=== PATIENT | male | born 1955 ===

== ENCOUNTER 2018-03-14 11:45 | Day surgery (SDC) | payer OTHER ==
[~2018-03-14 11:45] MED LIST: AMIT10 PO; AMOCLA875 PO; AMOX500 PO; ASPI81CH PO; ATEN25 PO; ATEN50; ATEN50 PO; BUSP10 PO; CLON1 PO; Coumadin10 MG PO; FISH1000 PO; FLUO20 PO; HYDACE5 PO; LEVFLO500 PO; LISHYD1012 PO; MAGCIT300 PO; OMEP20ER; OMEP20ER PO; PRAV20 PO; PRAV40 PO; TRAZ100 PO; ZOLP5 PO
== END 2018-03-14 23:28 | disposition home or self-care (01) ==
LOC: WOUND 11:45
DX: E11.622 Type 2 diabetes mellitus with other skin ulcer (principal); L97.821 Non-pressure chronic ulcer of other part of left lower leg limited to breakdown of skin; I87.2 Venous insufficiency (chronic) (peripheral); E11.65 Type 2 diabetes mellitus with hyperglycemia; R60.9 Edema, unspecified; I83.892 Varicose veins of left lower extremity with other complications; I10 Essential (primary) hypertension; F41.8 Other specified anxiety disorders
CPT/HCPCS: G0463

== ENCOUNTER 2018-03-21 12:04 | Day surgery (SDC) | payer OTHER | END 2018-03-21 22:50 | disposition home or self-care (01) | LOC: WOUND 12:04 | DX: Z48.00 Encounter for change or removal of nonsurgical wound dressing (principal); E11.622 Type 2 diabetes mellitus with other skin ulcer; L97.822 Non-pressure chronic ulcer of other part of left lower leg with fat layer exposed; I87.2 Venous insufficiency (chronic) (peripheral); E11.65 Type 2 diabetes mellitus with hyperglycemia; R60.9 Edema, unspecified; I83.892 Varicose veins of left lower extremity with other complications | CPT/HCPCS: G0463 ==

== ENCOUNTER 2018-03-28 12:22 | Day surgery (SDC) | payer OTHER | END 2018-03-28 23:14 | disposition home or self-care (01) | LOC: WOUND 12:22 | DX: E11.622 Type 2 diabetes mellitus with other skin ulcer (principal); L97.822 Non-pressure chronic ulcer of other part of left lower leg with fat layer exposed; I87.2 Venous insufficiency (chronic) (peripheral); E11.65 Type 2 diabetes mellitus with hyperglycemia; R60.9 Edema, unspecified; I83.892 Varicose veins of left lower extremity with other complications; I10 Essential (primary) hypertension; F41.8 Other specified anxiety disorders | CPT/HCPCS: G0463 ==

== ENCOUNTER 2018-04-04 12:15 | Day surgery (SDC) | payer OTHER | END 2018-04-04 22:48 | disposition home or self-care (01) | LOC: WOUND 12:15 | DX: Z48.00 Encounter for change or removal of nonsurgical wound dressing (principal); E11.622 Type 2 diabetes mellitus with other skin ulcer; L97.822 Non-pressure chronic ulcer of other part of left lower leg with fat layer exposed; I87.2 Venous insufficiency (chronic) (peripheral); E11.65 Type 2 diabetes mellitus with hyperglycemia | CPT/HCPCS: G0463 ==

== ENCOUNTER 2018-04-18 00:29 | Day surgery (SDC) | payer OTHER | END 2018-04-18 23:03 | disposition home or self-care (01) | LOC: WOUND 00:29 | DX: E11.622 Type 2 diabetes mellitus with other skin ulcer (principal); L97.822 Non-pressure chronic ulcer of other part of left lower leg with fat layer exposed; I87.2 Venous insufficiency (chronic) (peripheral); E11.65 Type 2 diabetes mellitus with hyperglycemia; R60.9 Edema, unspecified; I83.892 Varicose veins of left lower extremity with other complications; Z79.82 Long term (current) use of aspirin | CPT/HCPCS: 87070; 87077; 87147; 87186; 87205 ==

== ENCOUNTER 2018-04-29 19:07 | Emergency (ER) | payer OTHER ==
[~2018-04-29] VITALS: Ht 165.1 cm; Wt 76.2 kg
== END 2018-04-29 20:27 | disposition home or self-care (01) ==
LOC: ER 19:07
DX: L97.929 Non-pressure chronic ulcer of unspecified part of left lower leg with unspecified severity (principal); Z48.00 Encounter for change or removal of nonsurgical wound dressing
CPT/HCPCS: 99282

== ENCOUNTER 2018-05-09 00:44 | Day surgery (SDC) | payer OTHER | END 2018-05-09 22:53 | disposition home or self-care (01) | LOC: WOUND 00:44 | DX: E11.622 Type 2 diabetes mellitus with other skin ulcer (principal); L97.822 Non-pressure chronic ulcer of other part of left lower leg with fat layer exposed; I87.2 Venous insufficiency (chronic) (peripheral); E11.65 Type 2 diabetes mellitus with hyperglycemia; R60.9 Edema, unspecified; I83.892 Varicose veins of left lower extremity with other complications; I10 Essential (primary) hypertension; E78.5 Hyperlipidemia, unspecified; F41.8 Other specified anxiety disorders | CPT/HCPCS: G0463 ==

== ENCOUNTER 2018-05-16 12:25 | Day surgery (SDC) | payer OTHER | END 2018-05-16 22:45 | disposition home or self-care (01) | LOC: WOUND 12:25 | DX: E11.622 Type 2 diabetes mellitus with other skin ulcer (principal); I83.028 Varicose veins of left lower extremity with ulcer other part of lower leg; L97.822 Non-pressure chronic ulcer of other part of left lower leg with fat layer exposed; I10 Essential (primary) hypertension; E78.5 Hyperlipidemia, unspecified; F32.9 Major depressive disorder, single episode, unspecified; F41.9 Anxiety disorder, unspecified | CPT/HCPCS: 87070; 87205; G0463 ==

== ENCOUNTER 2018-05-20 00:17 | Day surgery (SDC) | payer OTHER | END 2018-05-20 12:00 | disposition home or self-care (01) | LOC: WOUND 00:17 | DX: E11.622 Type 2 diabetes mellitus with other skin ulcer (principal); L97.822 Non-pressure chronic ulcer of other part of left lower leg with fat layer exposed; I87.2 Venous insufficiency (chronic) (peripheral); E11.65 Type 2 diabetes mellitus with hyperglycemia; I83.892 Varicose veins of left lower extremity with other complications; I10 Essential (primary) hypertension; F41.9 Anxiety disorder, unspecified | CPT/HCPCS: G0463 ==

== ENCOUNTER 2018-05-27 00:23 | Day surgery (SDC) | payer OTHER | END 2018-05-27 23:22 | disposition home or self-care (01) | LOC: WOUND 00:23 | DX: L97.822 Non-pressure chronic ulcer of other part of left lower leg with fat layer exposed (principal); I83.028 Varicose veins of left lower extremity with ulcer other part of lower leg; I87.2 Venous insufficiency (chronic) (peripheral); I10 Essential (primary) hypertension; E11.65 Type 2 diabetes mellitus with hyperglycemia; E78.5 Hyperlipidemia, unspecified; F32.9 Major depressive disorder, single episode, unspecified; F41.9 Anxiety disorder, unspecified | CPT/HCPCS: G0463 ==

== ENCOUNTER 2018-05-30 00:13 | Day surgery (SDC) | payer OTHER | END 2018-05-30 23:20 | disposition home or self-care (01) | LOC: WOUND 00:13 | DX: L97.822 Non-pressure chronic ulcer of other part of left lower leg with fat layer exposed (principal); I83.92 Asymptomatic varicose veins of left lower extremity; E11.9 Type 2 diabetes mellitus without complications; I10 Essential (primary) hypertension; E78.5 Hyperlipidemia, unspecified; F32.9 Major depressive disorder, single episode, unspecified; F41.9 Anxiety disorder, unspecified; Z79.899 Other long term (current) drug therapy; Z79.84 Long term (current) use of oral hypoglycemic drugs ==

== ENCOUNTER 2018-05-31 04:10 | Emergency (ER) | payer OTHER ==
[~2018-05-31] VITALS: Ht 165.1 cm; Wt 78.0 kg
== END 2018-05-31 05:03 | disposition home or self-care (01) ==
LOC: ER 04:10
DX: Z48.00 Encounter for change or removal of nonsurgical wound dressing (principal); Z79.899 Other long term (current) drug therapy; Z79.82 Long term (current) use of aspirin; F32.9 Major depressive disorder, single episode, unspecified; I10 Essential (primary) hypertension
CPT/HCPCS: 99283

== ENCOUNTER 2018-06-08 01:45 | Emergency (ER) | payer OTHER ==
[~2018-06-08] VITALS: Ht 165.1 cm; Wt 78.0 kg
[2018-06-08] MEDS ORDERED: METF500C PO (02:04)
[2018-06-08] MEDS ORDERED: METO50ER PO (02:04)
== END 2018-06-08 02:47 | disposition home or self-care (01) ==
LOC: ER 01:45
DX: M79.662 Pain in left lower leg (principal); Z79.84 Long term (current) use of oral hypoglycemic drugs; Z79.899 Other long term (current) drug therapy; Z79.82 Long term (current) use of aspirin; F32.9 Major depressive disorder, single episode, unspecified; I10 Essential (primary) hypertension
CPT/HCPCS: 99282

== ENCOUNTER 2018-06-28 09:23 | Day surgery (SDC) | payer MEDICARE, OTHER ==
[~2018-06-28] VITALS: Ht 165.1 cm; Wt 77.0 kg
[~2018-06-28 09:23] MED LIST changes: +METF500C PO; +METO50ER PO; +POTCHL10ER PO
--- NOTE | 2018-06-28 10:52 | NUR ---
RF CYCLES COMPLETED AT 120 DEGREES AT 11 LÓPEZ. TOTAL TX TIME 2:40, 8 RF CYCLES. PT TOLERATING WELL.
--- NOTE | 2018-06-28 11:03 | NUR ---
PT TOLERATED VENOUS ABLATIONA AND SCLEROTHERAPY WELL.
--- NOTE | 2018-06-28 12:02 | NUR ---
LEFT LEG WRAPPED WITH BHANU, COBAN TO THIGHT-HIGH. KNEE-HIGH COMPRESSION STOCKING PLACED ON LEFT LEG. NO BLEEDING AND NO HEMATOMA LEFT LOWER LEG. DISCHARGE INSTRUCTIONS REVIEWED AND ALL QUESTIONS ANSWERED. 20 G IV DISCONTINUED FROM RIGHT AC WITH INTACT CANNULA. PT PROVIED LUNCH AND DRINK TO TAKE WITH HIM AND HAD WHEELCHAIR ESCORT OUT.
== END 2018-06-28 22:51 | disposition home or self-care (01) ==
LOC: MHTC 09:23
DX: I87.2 Venous insufficiency (chronic) (peripheral) (principal); E11.622 Type 2 diabetes mellitus with other skin ulcer; L97.829 Non-pressure chronic ulcer of other part of left lower leg with unspecified severity; I10 Essential (primary) hypertension; K21.9 Gastro-esophageal reflux disease without esophagitis; Z88.1 Allergy status to other antibiotic agents; Z88.8 Allergy status to other drugs, medicaments and biological substances; Z79.899 Other long term (current) drug therapy; Z79.84 Long term (current) use of oral hypoglycemic drugs
CPT/HCPCS: 36466; 36475; 99152; C1769; C1888; C1894; J1644; J2250; J3010; J7030; J7040

== ENCOUNTER 2018-07-10 01:35 | Emergency (ER) | payer MEDICARE, OTHER ==
[~2018-07-10] VITALS: Ht 165.1 cm; Wt 76.2 kg
== END 2018-07-10 04:50 | disposition home or self-care (01) ==
LOC: ER 01:35
DX: I99.8 Other disorder of circulatory system (principal); L97.929 Non-pressure chronic ulcer of unspecified part of left lower leg with unspecified severity; F32.9 Major depressive disorder, single episode, unspecified; I10 Essential (primary) hypertension; Z88.2 Allergy status to sulfonamides; Z88.1 Allergy status to other antibiotic agents; Z79.899 Other long term (current) drug therapy; Z79.82 Long term (current) use of aspirin
CPT/HCPCS: 99282

== ENCOUNTER 2018-07-22 15:56 | Inpatient (IN) | payer MEDICARE, OTHER ==
[~2018-07-22] VITALS: Ht 165.1 cm; Wt 76.9 kg
[2018-07-22 16:18] LABS: Source, Urine Clean Catch
[2018-07-22 16:33] LABS: BASOPHILS ABSOLUTE AUTO 0.02 K/mm3 (0.00-0.23); BASOPHILS PERCENT AUTO 0 % (0-2); EOSINOPHILS PERCENT AUTO 0 % (0-6); Hematocrit 35.9 % (37.0-53.0); Hemoglobin 12.3 g/dL (13.5-17.5); IMMATURE GRAN ABSOLUTE AUTO 0.16 K/mm3 (0.00-0.10); IMMATURE GRAN PERCENT AUTO 1 % (0-1); LYMPHOCYTES ABSOLUTE AUTO 0.74 K/mm3 (0.84-5.20); LYMPHOCYTES PERCENT AUTO 6 % (21-46); MONOCYTES ABSOLUTE AUTO 0.66 K/mm3 (0.16-1.47); MONOCYTES PERCENT AUTO 5 % (4-13); Mean Corpuscular HGB 29.7 pg (26.0-34.0); Mean Corpuscular HGB Conc 34.3 g/dL (31.5-36.5); Mean Corpuscular Volume 87 fL (80-100); Mean Platelet Volume 10.1 fL (9.1-12.4); NEUTROPHILS ABSOLUTE AUTO 11.38 K/mm3 (1.96-9.15); NEUTROPHILS PERCENT AUTO 88 % (41-73); Platelet Count 181 K/mm3 (150-400); RDW Coefficient Variation 14.6 % (11.7-14.2); Red Blood Cell Count 4.14 M/mm3 (4.30-5.90); White Blood Cell Count 12.96 K/mm3 (4.00-11.30)
[2018-07-22 16:36] LABS: Bilirubin, Urine Neg (Neg); Blood, Urine 5+ (Neg); Glucose Qualitative, Urine 4+ (Neg); Ketones, Urine 1+ (Neg); Leukocyte Esterase, Urine 2+ (Neg); Nitrite, Urine Neg (Neg); Protein, Urine 3+ (Neg); Urobilinogen, Urine NORM (Normal)
[2018-07-22 16:42] LABS: Alanine Aminotransfer (ALT/SGP 36 U/L (12-78); Albumin, Blood 2.5 g/dL (3.4-5.0); Albumin/Globulin Ratio 0.5 (0.8-1.8); Alk Phos 110 U/L (50-136); Anion Gap 14 mmol/L (6-16); Aspartate Aminotrans (AST/SGOT 62 U/L (12-37); Beta-hydroxybutyrate 7.7 mg/dL (0.2-2.8); Blood Urea Nitrogen 15 mg/dL (8-24); Bun/Creatinine Ratio 18.2 (12.0-20.0); CO2, Blood 19 mmol/L (21-32); Chloride, Blood 94 mmol/L (98-108); Creatinine, Blood 0.82 mg/dL (0.60-1.20); Globulin, Blood 5.5 g/dL (2.2-4.0); Glomerular Filtration Rate >60 (60-); Glucose, Blood 589 mg/dL (70-99); Potassium, Blood 4.4 mmol/L (3.5-5.5); Sodium, Blood 127 mmol/L (136-145)
[2018-07-22 16:59] LABS: Appearance, Urine Cloudy (Clear); Color, Urine Yellow (P-Yellow)
[2018-07-22 17:11] LABS: Squamous Epithelial Cells Mod /hpf (Few); White Blood Cells, Urine TNTC /hpf (0-5)
[2018-07-22 17:13] LABS: Bacteria Mod /hpf
[2018-07-22] MEDS ORDERED: ACET500 PO (18:49)
[2018-07-22] MEDS ORDERED: Oyster Shell C500 MG PO (18:50)
[2018-07-22 20:30] LABS: U Amphetamine Screen Not Detected; U Barbituate Screen Not Detected; U Benzodiazapine Screen Not Detected; U Buprenorphine Screen Not Detected; U Cannabinoids Screen Not Detected; U Cocaine Screen Not Detected; U Methadone Screen Not Detected; U Methamphetamine Screen Not Detected; U Opiates Screen Not Detected; U Oxycodone Screen Not Detected; U Phencyclidine Screen Not Detected; U Propoxyphene Screen Not Detected
--- NOTE | 2018-07-22 20:30 | NUR ---
RECEIVED HAND OFF FROM ER NURSING USING SBAR. TRANSPORTED TO PCU 11 VIA STRETCHER. TRANSFERED SELF TO BED WITH MAX ASSIST FROM STAFF, TOLERATED WELL. AAO X3, PINA, FOLLOWS ALL COMMANDS. HAS FLAT AFFECT AT TIMES AND TAKES WHAT IS SAID LITERAL. LEFT FA 18G PIV IS PATENT, FLUSHING WITH EASE WHILE FINISHING FIRST DOSE OF VANC STARTED IN ER. LLE WOUND CLEANSED WITH DERMAL WOULD CLEANSER, ABD PAD APPLIED, WRAPPED IN CURLEX, AND NET STOCKING APPLIED OVER THAT, TOLERATED WELL. PROVIDED WITH ORAL HYDRATION PER REQUEST. ADMISSION ASSESSMENT IN PROGRESS. SAFETY MEASURES IN PLACE. WILL CONTINUE TO MONITOR.
[2018-07-22 21:48] LABS: Anion Gap 8 mmol/L (6-16); Blood Urea Nitrogen 14 mg/dL (8-24); Bun/Creatinine Ratio 15.3 (12.0-20.0); CO2, Blood 24 mmol/L (21-32); Calcium, Blood 7.3 mg/dL (8.5-10.1); Chloride, Blood 100 mmol/L (98-108); Creatinine, Blood 0.91 mg/dL (0.60-1.20); Glomerular Filtration Rate >60 (60-); Glucose, Blood 340 mg/dL (70-99); Potassium, Blood 3.5 mmol/L (3.5-5.5); Sodium, Blood 132 mmol/L (136-145)
[2018-07-23 04:06] LABS: Hematocrit 29.6 % (37.0-53.0); Hemoglobin 9.8 g/dL (13.5-17.5); Mean Corpuscular HGB 29.2 pg (26.0-34.0); Mean Corpuscular HGB Conc 33.1 g/dL (31.5-36.5); Mean Corpuscular Volume 88 fL (80-100); Mean Platelet Volume 9.8 fL (9.1-12.4); Platelet Count 143 K/mm3 (150-400); RDW Coefficient Variation 14.6 % (11.7-14.2); RDW Standard Deviation 47.8 fL (35.1-46.3); Red Blood Cell Count 3.36 M/mm3 (4.30-5.90); White Blood Cell Count 10.89 K/mm3 (4.00-11.30)
[2018-07-23 04:26] LABS: Anion Gap 8 mmol/L (6-16); Blood Urea Nitrogen 16 mg/dL (8-24); Bun/Creatinine Ratio 21.6 (12.0-20.0); CO2, Blood 23 mmol/L (21-32); Calcium, Blood 7.4 mg/dL (8.5-10.1); Chloride, Blood 102 mmol/L (98-108); Creatinine, Blood 0.74 mg/dL (0.60-1.20); Glomerular Filtration Rate >60 (60-); Glucose, Blood 255 mg/dL (70-99); Potassium, Blood 3.4 mmol/L (3.5-5.5); Sodium, Blood 133 mmol/L (136-145)
[2018-07-23 04:29] LABS: BAND PERCENT MAN 15 % (0-8); BASOPHILS PERCENT MAN 0 % (0-2); EOSINOPHILS PERCENT MAN 0 % (0-6); LYMPHOCYTES ABSOLUTE MAN 0.98 K/mm3 (0.84-5.20); LYMPHOCYTES PERCENT MAN 9 % (21-46); MONOCYTES ABSOLUTE MAN 0.54 K/mm3 (0.16-1.47); MONOCYTES PERCENT MAN 5 % (4-13); NEUTROPHILS ABSOLUTE MAN 9.36 K/mm3 (1.96-9.15); SEG NEUTROPHILS PERCENT MAN 71 % (41-73); TOTAL CELLS COUNTED 100
--- NOTE | 2018-07-23 06:44 | NUR ---
LYING IN SEMI FOWLERS WITH EYES OPEN WHILE WATCHING TV WITH THE SOUNDS DOWN. 18G SL PIV PLACED TO LEFT FA. 0600 DOSE OF VANC STARTED. DENIES PAIN, DISCOMFORT, OR FURTHER NEEDS AT THIS TIME. NO FURTHER CHANGES SINCE ADMISSION. SAFETY MESURES IN PLACE. WILL GIVE HAND OFF TO ONCOMING SHIFT UING SBAR.
--- NOTE | 2018-07-23 16:36 | NUR ---
SUMMARY PT IS A/O X2-3, AFFECT SOMEWHAT FLAT HOWEVER INITIATES CONVERSATION, COOPERATIVE AFFECT. SBA TO BSC, GAIT UNSTEADY. LLE CELLULITIS/REDNESS MAPPED. DRSG PLACED LAMBERTO JAVIER RN HAS BEEN CDI. IV ANTIBX ORDERED. PT STATE MINIMAL DISCOMFORT LLE, STATE BOTH LEGS SOMEWHAT CRAMPING, RESTLESS, "JUMPY", PRN TYLENOL PROVIDES RELIEF. VSS, AFEBRILE.
[2018-07-23 17:29] LABS: Vancomycin, Trough 9.3 ug/mL (5.0-10.0)
--- NOTE | 2018-07-24 04:14 | NUR ---
SHIFT SUMMARY PT ALERT T/O SHIFT. VSS; NO ACUTE CHANGES. RA; TELEMETRY IN PLACE; SR WITH PAC'S PER FUNERAL HOME ASSISTANT. DRESSING TO LLE CHANGED. AREA OF REDNESS TO LLE UNCHANGED FROM OUTLINE OUTLINE. PINK/RED AREA INTO GROIN. BRISK CAP REFILL; PWD EXT; PPPX4. PAIN MANAGED PER EMAR. BLOOD GLUCOSE MANAGED PER ORDERS AND PROTOCOL. GOOD PO INTAKE; SOFT BM X1CALL LIGHT IN REACH; PT REMINDED OF NEED TO CALL FOR ASSIST OOB. BED ALARM AND SIDE RAILS X3 FOR SAFETY. WCTM UNTIL REPORT TO DAY SHIFT RN.
[2018-07-24 09:45] LABS: Vancomycin, Trough 8.2 ug/mL (5.0-10.0)
--- NOTE | 2018-07-24 13:42 | NUR ---
Initial Visit: Palliative Care Consult for AD/POLST Pt's bedside nurse Carleen requests for palliative care to make therapeutic visit due to Pt's intention to leave AMA. Pt is sitting in chair and is in the process of getting dressed. Pt appears agitated as evidenced by tone of voice and short answers. Atempted to engage in therapeutic discussion regarding causes of frustrations. Pt reports he warned staff he needed to be discharged by today due to a camping trip being scheduled and did not want to lose his $[address] Dougherty arrives to room and recommends for Pt to stay. Pt is adamant about leaving. Continued to attempt theapeutic discussion and Pt requests for visit to be ended so he can get dressed. This RN respected Pt's wishes and ended visit. Palliative Care will remain available
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
== END 2018-07-24 13:52 | disposition left against medical advice (07) | DRG 871 ==
LOC: ER 15:56 → PCU 19:33
PROVIDERS: Emergency Medicine; Nurse Practitioner Acute Care; ADMIT Internal Medicine
DX: A41.9 Sepsis, unspecified organism (principal); R65.21 Severe sepsis with septic shock; G92 Toxic encephalopathy; L03.116 Cellulitis of left lower limb; E87.1 Hypo-osmolality and hyponatremia; I10 Essential (primary) hypertension; E78.5 Hyperlipidemia, unspecified; E11.65 Type 2 diabetes mellitus with hyperglycemia; Z98.52 Vasectomy status; Z96.641 Presence of right artificial hip joint; Z79.82 Long term (current) use of aspirin; E86.0 Dehydration; D64.9 Anemia, unspecified; E83.51 Hypocalcemia; E87.6 Hypokalemia; Z79.84 Long term (current) use of oral hypoglycemic drugs
CPT/HCPCS: 36415; 70450; 71046; 73590; 73720; 80048; 80053; 80202; 81001; 82010; 82330; 82947; 83605; 83735; 85025; 85651; 86140; 87040; 87070; 87075; 87077; 87086; 87147; 87186; 87205; 93005; 93010; 93971; 96365; 96367; 99285-25; A9577; J0610; J0696; J1650; J1815; J2543; J3370; J7030

== ENCOUNTER → 2018-08-05 | Outpatient (CLI) | payer MEDICARE, OTHER ==
[~2018-08-05] MED LIST changes: +ACET500 PO; +Oyster Shell C500 MG PO
== END | disposition home or self-care (01) ==
LOC: LAB SHORT 12:08 → LAB EV 12:08
DX: L03.119 Cellulitis of unspecified part of limb (principal)
CPT/HCPCS: 87070; 87075; 87077; 87186; 87205

== ENCOUNTER → 2018-09-26 | Outpatient (CLI) | payer MEDICARE, OTHER | END | disposition home or self-care (01) | LOC: LAB SHORT 13:22 → LAB 13:22 | DX: E11.622 Type 2 diabetes mellitus with other skin ulcer (principal); L97.929 Non-pressure chronic ulcer of unspecified part of left lower leg with unspecified severity | CPT/HCPCS: 87070; 87075; 87077; 87186; 87205 ==

== ENCOUNTER 2019-05-03 19:06 | Inpatient (IN) | payer MEDICARE, OTHER ==
[~2019-05-03] VITALS: Ht 167.6 cm; Wt 81.3 kg
[~2019-05-03 19:06] MED LIST changes: -ASPI81CH PO; +Aspirin EC81 MG PO
[2019-05-04 03:13] LABS: BASOPHILS ABSOLUTE AUTO 0.07 K/mm3 (0.00-0.23); BASOPHILS PERCENT AUTO 1 % (0-2); EOSINOPHILS ABSOLUTE AUTO 0.16 K/mm3 (0.00-0.68); EOSINOPHILS PERCENT AUTO 2 % (0-6); Hematocrit 43.6 % (37.0-53.0); Hemoglobin 14.7 g/dL (13.5-17.5); IMMATURE GRAN ABSOLUTE AUTO 0.05 K/mm3 (0.00-0.10); IMMATURE GRAN PERCENT AUTO 1 % (0-1); LYMPHOCYTES PERCENT AUTO 27 % (21-46); MONOCYTES ABSOLUTE AUTO 0.76 K/mm3 (0.16-1.47); MONOCYTES PERCENT AUTO 10 % (4-13); Mean Corpuscular HGB 29.5 pg (26.0-34.0); Mean Corpuscular HGB Conc 33.7 g/dL (31.5-36.5); Mean Corpuscular Volume 87 fL (80-100); Mean Platelet Volume 9.7 fL (9.1-12.4); NEUTROPHILS PERCENT AUTO 60 % (41-73); Platelet Count 178 K/mm3 (150-400); RDW Coefficient Variation 13.5 % (11.7-14.2); RDW Standard Deviation 43.1 fL (35.1-46.3); Red Blood Cell Count 4.99 M/mm3 (4.30-5.90); White Blood Cell Count 8.04 K/mm3 (4.00-11.30)
[2019-05-04 03:32] LABS: Alanine Aminotransfer (ALT/SGP 29 U/L (12-78); Albumin, Blood 3.1 g/dL (3.4-5.0); Albumin/Globulin Ratio 0.6 (0.8-1.8); Alk Phos 130 U/L (50-136); Anion Gap 9 mmol/L (6-16); Aspartate Aminotrans (AST/SGOT 15 U/L (12-37); Bilirubin, Total 0.3 mg/dL (0.1-1.0); Blood Urea Nitrogen 21 mg/dL (8-24); Bun/Creatinine Ratio 25.2 (12.0-20.0); CO2, Blood 27 mmol/L (21-32); Calcium, Blood 8.9 mg/dL (8.5-10.1); Chloride, Blood 102 mmol/L (98-108); Creatinine, Blood 0.83 mg/dL (0.60-1.20); Globulin, Blood 4.9 g/dL (2.2-4.0); Glomerular Filtration Rate >60 (60-); Glucose, Blood 232 mg/dL (70-99); Potassium, Blood 3.6 mmol/L (3.5-5.5); Sodium, Blood 138 mmol/L (136-145)
[2019-05-04] MEDS ORDERED: HYDROCHLOROTH12.5 MG PO (12:18)
[2019-05-04] MEDS ORDERED: ATOR40TA PO (12:18)
[2019-05-04] MEDS ORDERED: Prinivil10 MG PO (12:18)
[2019-05-04] MEDS ORDERED: Lisinopril-Hct1 EAC4 PO (12:42)
--- NOTE | 2019-05-04 13:17 | NUR ---
ER ADMIT- PT ARRIVED TO ROOM 357 VIA GURNEY FROM ED, INDEP TRANSFER INTO BED. PT REPORTS MILD PAIN TO RLE WITH AMBULATION. REDNESS TO BLE, BLISTER POPPED X2 TO RIGHT CALF, PHOTO TAKEN AND ELEVATED ON PILLOWS. LS CEAR, ON RA. HRR. PT DENIES ANY COMPLAINTS OR NEEDS AT THIS TIME. PT ORIENTED TO ROOM AND CALL SYSTEM. CALL LIGHT IN REACH.
--- NOTE | 2019-05-04 16:45 | NUR ---
SHIFT SUMMARY- ER ADMIT TODAY. PT A/OX4, SBA UP IN ROOM. PT REPORTS PAIN TO RIGHT LEG ONLY WITH AMBULATION. REDNESS TO BLE WITH RIGHT CALF HAVING 2 POPPED BLISTERS, PHOTOS TAKEN AND LEG ELEVATED ON PILLOWS. LS CLEAR, ON RA. HRR. PT HOMELESS. PT CAN BE IRRITABLE AT TIMES. 20G TO LEFT HAND WITH NS RUNNING AT 75ML/HR X1.5L. NO OTHER ACUTE CHANGES SINCE ARRIVAL TO FLOOR.
--- NOTE | 2019-05-05 04:41 | NUR ---
SHIFT SUMMARY PT HAS RESTED MOST OF THE NIGHT. CELLULTIS TO BLE REMAINS UNCHANGED, OUTLINED WITH NELSONIE. BLISTERS TO RIGHT MARCH ARE WHEEPING. PT DENIES PAIN IN HIS LEGS, HE STATES ONLY WHEN TOUCHED. IV ABX CONTINUED ORDERED. PT AFEBRILE WITH ORAL TEMP CHECK. PT HAS RECEIVED A FULL LITER OF NS AND IS NOW ON HIS HALF LITER. PT A/OX4, FLAT WITHDRAWN EFFECT. DENIES NEEDS WHEN ASKED. NO ACUTE CHANGES IN PT ASSESSMENT. BED IN LOWEST POSITION, CALL LIGHT WITHIN REACH. WILL CONTINUE TO MONITOR AND REPORT TO ONCOMING RN.
[2019-05-05 04:44] LABS: BASOPHILS ABSOLUTE AUTO 0.05 K/mm3 (0.00-0.23); BASOPHILS PERCENT AUTO 1 % (0-2); EOSINOPHILS ABSOLUTE AUTO 0.17 K/mm3 (0.00-0.68); EOSINOPHILS PERCENT AUTO 2 % (0-6); Hematocrit 41.5 % (37.0-53.0); Hemoglobin 13.8 g/dL (13.5-17.5); IMMATURE GRAN ABSOLUTE AUTO 0.06 K/mm3 (0.00-0.10); IMMATURE GRAN PERCENT AUTO 1 % (0-1); LYMPHOCYTES ABSOLUTE AUTO 1.81 K/mm3 (0.84-5.20); LYMPHOCYTES PERCENT AUTO 25 % (21-46); MONOCYTES PERCENT AUTO 10 % (4-13); Mean Corpuscular HGB 29.2 pg (26.0-34.0); Mean Corpuscular HGB Conc 33.3 g/dL (31.5-36.5); Mean Corpuscular Volume 88 fL (80-100); Mean Platelet Volume 9.5 fL (9.1-12.4); NEUTROPHILS ABSOLUTE AUTO 4.47 K/mm3 (1.96-9.15); NEUTROPHILS PERCENT AUTO 62 % (41-73); Platelet Count 155 K/mm3 (150-400); RDW Coefficient Variation 13.5 % (11.7-14.2); RDW Standard Deviation 43.8 fL (35.1-46.3); Red Blood Cell Count 4.73 M/mm3 (4.30-5.90); White Blood Cell Count 7.26 K/mm3 (4.00-11.30)
[2019-05-05 05:12] LABS: Alanine Aminotransfer (ALT/SGP 26 U/L (12-78); Albumin, Blood 2.7 g/dL (3.4-5.0); Albumin/Globulin Ratio 0.6 (0.8-1.8); Alk Phos 111 U/L (50-136); Anion Gap 6 mmol/L (6-16); Aspartate Aminotrans (AST/SGOT 17 U/L (12-37); Bilirubin, Total 0.5 mg/dL (0.1-1.0); Blood Urea Nitrogen 17 mg/dL (8-24); Bun/Creatinine Ratio 20.7 (12.0-20.0); CO2, Blood 28 mmol/L (21-32); Calcium, Blood 8.5 mg/dL (8.5-10.1); Chloride, Blood 104 mmol/L (98-108); Creatinine, Blood 0.82 mg/dL (0.60-1.20); Globulin, Blood 4.4 g/dL (2.2-4.0); Glomerular Filtration Rate >60 (60-); Glucose, Blood 188 mg/dL (70-99); Potassium, Blood 3.6 mmol/L (3.5-5.5); Sodium, Blood 138 mmol/L (136-145); Total Protein, Blood 7.1 g/dL (6.4-8.2)
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
--- NOTE | 2019-05-05 19:30 | NUR ---
SHIFT SUMMARY- PT ALERT AND ORIENTED. PT HAS FLAT AFFECT AND SEEMS TO BE FLAT OR ANGRY. PT BECAME ANGRY AND USED COLORFUL LANGUAGE EARLIER TODAY WITH THE LEGISLATORS WHEN HE WANTED TO BE DISCONNECTED FROM HIS IVF SO HE COULD USE THE BATHROOM. MAINFRAME SOFTWARE DEVELOPER WENT IN AND SPOKE TO HIM AND SL THE PT HIS ABX WERE COMPLETED. PT WAS GREATFUL AND BEHAVIOR HAS BEEN MORE LABILE T/O THE DAY. PT HAS A BLISTER ON THE BACK OF HIS RIGHT CALF, PLACED A MEPILEX OVER THE AFFECTED AREA AND THE PT STATED IT FELT MUCH BETTER. PT DENIED THE NEED FOR PAIN MEDICATION T/O THE SHIFT.
[2019-05-06 05:16] LABS: Anion Gap 6 mmol/L (6-16); Blood Urea Nitrogen 20 mg/dL (8-24); Bun/Creatinine Ratio 27.4 (12.0-20.0); CO2, Blood 27 mmol/L (21-32); Chloride, Blood 102 mmol/L (98-108); Creatinine, Blood 0.73 mg/dL (0.60-1.20); Glomerular Filtration Rate >60 (60-); Glucose, Blood 243 mg/dL (70-99); Phosphorus, Blood 3.8 mg/dL (2.5-4.9); Potassium, Blood 3.8 mmol/L (3.5-5.5); Sodium, Blood 135 mmol/L (136-145)
--- NOTE | 2019-05-06 06:23 | NUR ---
SHIFT SUMMARY PT IS COOPERATIVE WITH CARE. ADMITTED WITH CELLULITIS BLE. INFECTION APPEARS SLIGHTLY IMPROVED COMPAIRED TO MARKER LINES. PT HAS NOT COMPLAINED OF PAIN OR DISCOMFORT THIS NIGHT. HAS ACTUALLY SLEPT MOST OF THE NIGHT. AAOX4, RESP E/U ON ROOM AIR. APPEARS IN NO ACUTE DISTRESS. WILL CONTINUE TO MONITOR.
--- NOTE | 2019-05-06 08:35 | NUR ---
SPOKE TO DR JIMÉNEZ- PT BP 113/73 ASKED IF ALL MORNING BP MEDS SHOULD BE GIVEN. PER DR JIMÉNEZ OK TO GIVE ALL, METOPROLOL, LISINOPRIL AND HCTZ.
[2019-05-06] MEDS ORDERED: CLIN150 PO (10:50)
[2019-05-06] MEDS ORDERED: VISBIOME 112.51 EACH PO (10:50)
--- NOTE | 2019-05-06 15:17 | NUR ---
DISCHARGE NOTE- PT AWARE OF EMINENT DISCHARGE SPOKE ABOUT POSSIBLE DESTINATION FOR TRANSPORT AT THAT TIME PT STATED THAT HE COULD CONTACT HIS DAUGHTER, HE MAY BE ABLE TO STAY WITH HER FOR A FEW DAYS. (1100) HOURLY ROUNDING TO CHECK ON THE PT, SHOWER WAS OFFERED AND REFUSED, IV DC'D, INQUIRED ABOUT CONTACT WITH THE DAUGHTER AND PT STATED HE HAD NOT HEARD BACK YET. (1200) HOURLY ROUNDING SPOKE TO PT ABOUT NEED TO DETERMINE A DISCHARGE DESTINATION AND OFFERED TO SET UP TRANSPORT. SUGGESTED THAT MAYBE A PHONE CALL WOULD BE MORE APPROPRIATE FOR CONTACTING HIS FAMILY. PT STATED FLATLY "YEAH, I MIGHT DO THAT" PT MADE NO MOTION TO DO SO. SPOKE TO SUBSTANCE ADDICTION COORDINATOR ABOUT PT NOT APPEARING TO BE MAKING ANY EFFORT TO LEAVE, HE IS HOMELESS. (1300) WENT IN TO SPEAK TO THE PT HE AGAIN SAID HE HAD NOT HEARD FROM HIS DAUGHTER. INFORMED THE PT HIS DISCHARGE PAPERS HAVE BEEN COMPLETED (NOT YET PRINTED) AND HIS MEDICATIONS WERE FAXED TO HIS PHARMACY. TOLD THE PT WE WOULD LIKE TO ARANGE TRANSPORT FOR HIM AT 1500. AT THIS POINT PT SNAPPED AND YELLED AT STAFF STATING HIS DAUGHTER TOLD HIM "NO", WHERE IS HE SUPPOSED TO GO. HE WAS ANGRY AND VENTED AT THE STAFF. (1330) SPOKE TO NURSING SUBSTANCE ADDICTION COORDINATOR BRANDO (1350) CONCERN THAT DISCHARGE MAY BE DIFFICULT THE PT HAS SHOWN A TENDENCY TO VEBALLY LASH OUT. SPOKE ABOUT TALKING WITH THE PT AT 1500 WITH SUBSTANCE ADDICTION COORDINATOR ASSISTANCE HE MAY BE MORE ABLE TO ANSWER PT QUESTIONS. 1430 UPON RETURNING TO THE FLOOR WENT TO ROUND ON THE PT TO SEE IF HE HAS DECIDED ON A DESTINATION FOR THE TRANSPORT WE TALKED ABOUT. PT WAS NO LONGER IN THE ROOM. ALL PT BELONGINGS WERE GONE WELL, IT APPEARS THE PT LEFT WITHOUT RECIEVING HIS WRITTEN DISCHARGE INSTRUCTIONS. OTHER STAFF STATED SEEING THE PT DRESSED "CURSING" AT THE ELEVATOR. BANDAGE CHANGE FOR THE WOUND ON THE RIGHT LEG WAS NOT COMPLETED PLANNED JUST PROR TO DISCHARGE. DOCUMENT IMAGING MANAGER INFORMED THE PT LEFT WITHOUT RECIEVING DC INSTRUCTIONS.
== END 2019-05-06 14:40 | disposition home or self-care (01) | DRG 603 ==
LOC: ER 19:06 → ERHOLD 19:07 → MEDS 05-04 12:44 → ENPENDDIS 05-06 09:00 → MEDS 05-06 14:40
PROVIDERS: Emergency Medicine; Internal Medicine; ADMIT Internal Medicine
DX: L03.115 Cellulitis of right lower limb (principal); E87.2 Acidosis; L03.116 Cellulitis of left lower limb; E11.65 Type 2 diabetes mellitus with hyperglycemia; E11.51 Type 2 diabetes mellitus with diabetic peripheral angiopathy without gangrene; E86.0 Dehydration; I10 Essential (primary) hypertension; E78.5 Hyperlipidemia, unspecified; Z59.0 Homelessness; Z79.82 Long term (current) use of aspirin; Z79.84 Long term (current) use of oral hypoglycemic drugs
CPT/HCPCS: 36415; 80053; 80069; 82947; 83036; 83605; 83735; 85025; 96361; 96365; 96367; 96372; A9270-GY; J1650; J7030

== ENCOUNTER 2019-05-19 11:13 | Emergency (ER) | payer MEDICARE, OTHER ==
[~2019-05-19] VITALS: Ht 167.6 cm; Wt 75.8 kg
[~2019-05-19 11:13] MED LIST changes: +ATOR40TA PO; +CLIN150 PO; +HYDROCHLOROTH12.5 MG PO; +Lisinopril-Hct1 EAC4 PO; +Prinivil10 MG PO; +VISBIOME 112.51 EACH PO
[2019-05-19 13:03] LABS: BASOPHILS ABSOLUTE AUTO 0.06 K/mm3 (0.00-0.23); BASOPHILS PERCENT AUTO 1 % (0-2); EOSINOPHILS ABSOLUTE AUTO 0.09 K/mm3 (0.00-0.68); EOSINOPHILS PERCENT AUTO 1 % (0-6); Hematocrit 42.4 % (37.0-53.0); Hemoglobin 14.5 g/dL (13.5-17.5); IMMATURE GRAN ABSOLUTE AUTO 0.06 K/mm3 (0.00-0.10); IMMATURE GRAN PERCENT AUTO 1 % (0-1); LYMPHOCYTES ABSOLUTE AUTO 1.77 K/mm3 (0.84-5.20); LYMPHOCYTES PERCENT AUTO 25 % (21-46); MONOCYTES ABSOLUTE AUTO 0.63 K/mm3 (0.16-1.47); MONOCYTES PERCENT AUTO 9 % (4-13); Mean Corpuscular HGB 29.1 pg (26.0-34.0); Mean Corpuscular HGB Conc 34.2 g/dL (31.5-36.5); Mean Corpuscular Volume 85 fL (80-100); Mean Platelet Volume 9.9 fL (9.1-12.4); NEUTROPHILS ABSOLUTE AUTO 4.47 K/mm3 (1.96-9.15); NEUTROPHILS PERCENT AUTO 63 % (41-73); Platelet Count 226 K/mm3 (150-400); RDW Coefficient Variation 13.2 % (11.7-14.2); Red Blood Cell Count 4.98 M/mm3 (4.30-5.90); White Blood Cell Count 7.08 K/mm3 (4.00-11.30)
[2019-05-19 13:21] LABS: Anion Gap 7 mmol/L (6-16); Blood Urea Nitrogen 18 mg/dL (8-24); Bun/Creatinine Ratio 24.5 (12.0-20.0); CO2, Blood 27 mmol/L (21-32); Calcium, Blood 9.1 mg/dL (8.5-10.1); Chloride, Blood 97 mmol/L (98-108); Creatinine, Blood 0.73 mg/dL (0.60-1.20); Glomerular Filtration Rate >60 (60-); Glucose, Blood 362 mg/dL (70-99); Potassium, Blood 3.7 mmol/L (3.5-5.5); Sodium, Blood 131 mmol/L (136-145)
[2019-05-19] MEDS ORDERED: Cipro500 MG PO (15:05)
[2019-05-19] MEDS ORDERED: Mupirocin22 GM TOP (15:05)
== END 2019-05-19 15:20 | disposition home or self-care (01) ==
LOC: ER 11:13
PROVIDERS: Emergency Medicine
DX: L03.116 Cellulitis of left lower limb (principal); L03.115 Cellulitis of right lower limb; E11.51 Type 2 diabetes mellitus with diabetic peripheral angiopathy without gangrene; Z59.0 Homelessness; F32.9 Major depressive disorder, single episode, unspecified; I10 Essential (primary) hypertension; Z79.82 Long term (current) use of aspirin; Z79.84 Long term (current) use of oral hypoglycemic drugs; Z79.899 Other long term (current) drug therapy
CPT/HCPCS: 36415; 80048; 85025; 87070; 87075; 87077; 87147; 87186; 87205; 96365; 96366; 99283-25; J1956; J7030

== ENCOUNTER 2020-06-02 13:10 | Emergency (ER) | payer MEDICARE, OTHER ==
[~2020-06-02] VITALS: Ht 167.6 cm; Wt 75.3 kg
[~2020-06-02 13:10] MED LIST changes: +Cipro500 MG PO; +Mupirocin22 GM TOP
[2020-06-02 14:39] LABS: BASOPHILS ABSOLUTE AUTO 0.05 K/mm3 (0.00-0.23); BASOPHILS PERCENT AUTO 1 % (0-2); EOSINOPHILS ABSOLUTE AUTO 0.09 K/mm3 (0.00-0.68); EOSINOPHILS PERCENT AUTO 1 % (0-6); Hematocrit 40.4 % (37.0-53.0); Hemoglobin 14.1 g/dL (13.5-17.5); IMMATURE GRAN ABSOLUTE AUTO 0.05 K/mm3 (0.00-0.10); IMMATURE GRAN PERCENT AUTO 1 % (0-1); LYMPHOCYTES ABSOLUTE AUTO 1.46 K/mm3 (0.84-5.20); LYMPHOCYTES PERCENT AUTO 15 % (21-46); MONOCYTES ABSOLUTE AUTO 0.86 K/mm3 (0.16-1.47); MONOCYTES PERCENT AUTO 9 % (4-13); Mean Corpuscular HGB 29.3 pg (26.0-34.0); Mean Corpuscular HGB Conc 34.9 g/dL (31.5-36.5); Mean Corpuscular Volume 84 fL (80-100); Mean Platelet Volume 9.5 fL (9.1-12.4); NEUTROPHILS PERCENT AUTO 75 % (41-73); Platelet Count 277 K/mm3 (150-400); RDW Coefficient Variation 13.1 % (11.7-14.2); RDW Standard Deviation 40.1 fL (35.1-46.3); Red Blood Cell Count 4.81 M/mm3 (4.30-5.90); White Blood Cell Count 9.91 K/mm3 (4.00-11.30)
[2020-06-02 14:57] LABS: Alanine Aminotransfer (ALT/SGP 20 U/L (12-78); Albumin, Blood 2.7 g/dL (3.4-5.0); Albumin/Globulin Ratio 0.5 (0.8-1.8); Alk Phos 142 U/L (50-136); Anion Gap 4 mmol/L (6-16); Aspartate Aminotrans (AST/SGOT 23 U/L (12-37); Bilirubin, Total 0.5 mg/dL (0.1-1.0); Blood Urea Nitrogen 13 mg/dL (8-24); Bun/Creatinine Ratio 19.6 (12.0-20.0); CO2, Blood 30 mmol/L (21-32); Calcium, Blood 8.9 mg/dL (8.5-10.1); Chloride, Blood 101 mmol/L (98-108); Creatinine, Blood 0.66 mg/dL (0.60-1.20); Glomerular Filtration Rate >60 (60-); Glucose, Blood 337 mg/dL (70-99); Potassium, Blood 3.5 mmol/L (3.5-5.5); Sodium, Blood 135 mmol/L (136-145); Total Protein, Blood 7.7 g/dL (6.4-8.2)
[2020-06-02] MEDS ORDERED: Bactrim Ds Tab1 EACH PO (16:03)
== END 2020-06-02 16:20 | disposition home or self-care (01) ==
LOC: ER 13:10
PROVIDERS: Physician Assistant
DX: L03.116 Cellulitis of left lower limb (principal); L03.115 Cellulitis of right lower limb; I10 Essential (primary) hypertension; Z79.82 Long term (current) use of aspirin; Z79.899 Other long term (current) drug therapy
CPT/HCPCS: 80053; 85025; 99283; A9270

== ENCOUNTER 2021-01-28 04:09 | Emergency (ER) | payer MEDICARE, OTHER ==
[~2021-01-28 04:09] MED LIST changes: +Bactrim Ds Tab1 EACH PO
== END 2021-01-28 04:15 ==
LOC: ER 04:09
DX: Z00.8 Encounter for other general examination (principal); I10 Essential (primary) hypertension; F32.A Depression, unspecified; Z79.82 Long term (current) use of aspirin; Z79.899 Other long term (current) drug therapy
CPT/HCPCS: 99282

== ENCOUNTER 2022-02-13 15:46 | Emergency (ER) | payer MEDICARE, OTHER ==
[~2022-02-13] VITALS: Ht 167.6 cm; Wt 59.9 kg
[2022-02-14] MEDS ORDERED: ONDA4ODT MM (09:59)
== END 2022-02-13 17:10 | disposition home or self-care (01) ==
LOC: ER 15:46
DX: R69 Illness, unspecified (principal); Z79.899 Other long term (current) drug therapy; Z79.82 Long term (current) use of aspirin
CPT/HCPCS: 99283

== ENCOUNTER 2022-02-20 18:46 | Emergency (ER) | payer MEDICARE ==
[~2022-02-20] VITALS: Ht 165.1 cm; Wt 59.9 kg
[~2022-02-20 18:46] MED LIST changes: +ONDA4ODT MM
[2022-02-20 20:04] LABS: BASOPHILS ABSOLUTE AUTO 0.04 K/mm3 (0.00-0.23); BASOPHILS PERCENT AUTO 0 % (0-2); EOSINOPHILS ABSOLUTE AUTO 0.03 K/mm3 (0.00-0.68); EOSINOPHILS PERCENT AUTO 0 % (0-6); Hematocrit 43.2 % (37.0-53.0); Hemoglobin 15.3 g/dL (13.5-17.5); IMMATURE GRAN ABSOLUTE AUTO 0.09 K/mm3 (0.00-0.10); IMMATURE GRAN PERCENT AUTO 1 % (0-1); LYMPHOCYTES ABSOLUTE AUTO 0.89 K/mm3 (0.84-5.20); LYMPHOCYTES PERCENT AUTO 6 % (21-46); MONOCYTES ABSOLUTE AUTO 1.09 K/mm3 (0.16-1.47); MONOCYTES PERCENT AUTO 8 % (4-13); Mean Corpuscular HGB 30.5 pg (26.0-34.0); Mean Corpuscular HGB Conc 35.4 g/dL (31.5-36.5); Mean Corpuscular Volume 86 fL (80-100); Mean Platelet Volume 10.4 fL (9.1-12.4); NEUTROPHILS ABSOLUTE AUTO 12.09 K/mm3 (1.96-9.15); NEUTROPHILS PERCENT AUTO 85 % (41-73); Platelet Count 162 K/mm3 (150-400); RDW Coefficient Variation 13.5 % (11.7-14.2); RDW Standard Deviation 41.5 fL (35.1-46.3); Red Blood Cell Count 5.02 M/mm3 (4.30-5.90); White Blood Cell Count 14.23 K/mm3 (4.00-11.30)
[2022-02-20 20:27] LABS: Magnesium, Blood 1.8 mg/dL (1.6-2.4)
[2022-02-20 20:31] LABS: Albumin/Globulin Ratio 0.8 (0.8-1.8); Bilirubin, Total 0.5 mg/dL (0.1-1.0); Bun/Creatinine Ratio 37.4 (12.0-20.0); Calcium, Blood 9.2 mg/dL (8.5-10.1); Creatinine, Blood 0.96 mg/dL (0.60-1.20); Globulin, Blood 3.9 g/dL (2.2-4.0); Potassium, Blood 3.3 mmol/L (3.5-5.5); Thyroid Stimulating Hormone 2.1 uIU/mL (0.360-4.800); Total Protein, Blood 6.9 g/dL (6.4-8.2)
[2022-02-20 20:33] LABS: Influenza A, PCR NEGATIVE (NEGATIVE); Influenza B, PCR NEGATIVE (NEGATIVE); Resp Syncytial Virus, PCR NEGATIVE (NEGATIVE); SARS-Cov-2 (COVID-19) PCR, MMC NEGATIVE (NEGATIVE)
[2022-02-20] MEDS ORDERED: CEPH500 PO (23:15)
== END 2022-02-20 23:49 | disposition home or self-care (01) ==
LOC: ER 18:46
PROVIDERS: Student in an Organized Health Care Education/Training Program
DX: R53.1 Weakness (principal); D72.829 Elevated white blood cell count, unspecified; L03.115 Cellulitis of right lower limb; I10 Essential (primary) hypertension; Z79.82 Long term (current) use of aspirin; Z20.822 Contact with and (suspected) exposure to COVID-19; Z59.00 Homelessness unspecified
CPT/HCPCS: 0241U; 36415; 70450; 71046; 80053; 83735; 84443; 85025; 93005; 93010; A9270; J7030

== ENCOUNTER 2022-02-25 19:26 | Emergency (ER) | payer MEDICARE ==
[~2022-02-25] VITALS: Ht 165.1 cm; Wt 59.9 kg
[~2022-02-25 19:26] MED LIST changes: +CEPH500 PO
[2022-02-25 20:03] LABS: BASOPHILS ABSOLUTE AUTO 0.04 K/mm3 (0.00-0.23); BASOPHILS PERCENT AUTO 0 % (0-2); EOSINOPHILS PERCENT AUTO 0 % (0-6); Hematocrit 39.3 % (37.0-53.0); Hemoglobin 14.2 g/dL (13.5-17.5); IMMATURE GRAN PERCENT AUTO 1 % (0-1); LYMPHOCYTES ABSOLUTE AUTO 0.86 K/mm3 (0.84-5.20); LYMPHOCYTES PERCENT AUTO 5 % (21-46); MONOCYTES ABSOLUTE AUTO 1.71 K/mm3 (0.16-1.47); MONOCYTES PERCENT AUTO 11 % (4-13); Mean Corpuscular HGB 30.6 pg (26.0-34.0); Mean Corpuscular HGB Conc 36.1 g/dL (31.5-36.5); Mean Corpuscular Volume 85 fL (80-100); Mean Platelet Volume 9.6 fL (9.1-12.4); NEUTROPHILS ABSOLUTE AUTO 13.15 K/mm3 (1.96-9.15); NEUTROPHILS PERCENT AUTO 83 % (41-73); Platelet Count 200 K/mm3 (150-400); RDW Coefficient Variation 13.6 % (11.7-14.2); RDW Standard Deviation 42.2 fL (35.1-46.3); Red Blood Cell Count 4.64 M/mm3 (4.30-5.90); White Blood Cell Count 15.86 K/mm3 (4.00-11.30)
[2022-02-25 20:27] LABS: Albumin, Blood 2.5 g/dL (3.4-5.0); Albumin/Globulin Ratio 0.6 (0.8-1.8); Bilirubin, Total 1.3 mg/dL (0.1-1.0); Bun/Creatinine Ratio 38.2 (12.0-20.0); Calcium, Blood 8.9 mg/dL (8.5-10.1); Creatinine, Blood 1.23 mg/dL (0.60-1.20); Globulin, Blood 4.2 g/dL (2.2-4.0); Potassium, Blood 3.3 mmol/L (3.5-5.5); Total Protein, Blood 6.7 g/dL (6.4-8.2)
[2022-02-25] MEDS ORDERED: CEPH500 PO (23:27)
== END 2022-02-26 00:23 | disposition home or self-care (01) ==
LOC: ER 19:26
PROVIDERS: Emergency Medicine
DX: L03.116 Cellulitis of left lower limb (principal); I10 Essential (primary) hypertension; E11.9 Type 2 diabetes mellitus without complications; Z79.899 Other long term (current) drug therapy; Z79.82 Long term (current) use of aspirin
CPT/HCPCS: 36415; 80053; 82947; 85025; J0690

== ENCOUNTER 2022-02-26 10:55 | Emergency (ER) | payer MEDICARE ==
[~2022-02-26] VITALS: Ht 165.1 cm; Wt 59.9 kg
== END 2022-02-26 12:03 | disposition home or self-care (01) ==
LOC: ER 10:55
DX: R53.1 Weakness (principal); R41.82 Altered mental status, unspecified; Z59.00 Homelessness unspecified; I10 Essential (primary) hypertension
CPT/HCPCS: 99283